=== PATIENT | female | born 1970 | race Caucasian/White ===

== ENCOUNTER 2016-05-26 17:27 | Inpatient (IN) | payer OTHER, MEDICAID ==
[2016-05-26] MEDS ORDERED: INSULIN REGULAR HUMAN 100 UNIT/1 ML 10 ML MDV IVP STA (18:01)
[2016-05-26] MEDS ORDERED: NICOTINE 21 MG PATCH TOP STA (18:01)
[2016-05-26] MEDS ORDERED: SODIUM CHLORIDE 0.9% 1,000 ML IV ONE (18:01)
[2016-05-26] MEDS ORDERED: ALBUTEROL NEB 2.5 MG/3 ML INH STA (18:04)
[2016-05-26] MEDS ORDERED: NICOTINE 21 MG PATCH TOP ONE (18:12)
[2016-05-26] MEDS ORDERED: INSULIN REGULAR HUMAN 100 UNIT/1 ML 10 ML MDV ONE (18:13)
[2016-05-26] MEDS ORDERED: ALBUTEROL NEB 2.5 MG/3 ML INH ONE (18:18)
[2016-05-26] MEDS ORDERED: INSULIN REGULAR HUMAN 100 UNIT in SODIUM CHLORIDE 0.9% 100ML 99 ML IV ONE (18:49)
[2016-05-26] MEDS ORDERED: ELECTROLYTE-A SOLUTION 1,000 ML IV ONE (18:55)
[2016-05-26] MEDS ORDERED: ELECTROLYTE-A SOLUTION 1,000 ML IV SCH (19:00)
[2016-05-26] MEDS ORDERED: oxyCOD/ACETAMIN 5 MG/325 MG TABLET PO ONE (19:22)
[2016-05-26] MEDS ORDERED: HYDROcod/ACETAM 5/325 MG TABLET PO PRN (21:28)
[2016-05-26] MEDS ORDERED: SODIUM CHLORIDE FLUSH 0.9% 10 ML SYRINGE IVP PRN (21:28)
[2016-05-26] MEDS ORDERED: ONDANSETRON ODT 4 MG TABLET TL PRN (21:28)
[2016-05-26] MEDS ORDERED: ALBUTEROL NEB 2.5 MG/3 ML INH PRN (21:28)
[2016-05-26] MEDS ORDERED: ACETAMINOPHEN 325 MG TABLET PO PRN (21:28)
[2016-05-26] MEDS ORDERED: ONDANSETRON 4 MG/2 ML VIAL IVP PRN (21:28)
[2016-05-26] MEDS ORDERED: LORazepam 0.5 MG TABLET PO PRN (21:33)
[2016-05-26] MEDS ORDERED: INSULIN REGULAR HUMAN 100 UNIT in SODIUM CHLORIDE 0.9% 100ML 99 ML IV SCH (22:00)
[2016-05-26] MEDS: SODIUM CHLORIDE 0.9% 1,000 ML IV SCH (22:22)
[2016-05-26] MEDS: SODIUM CHLORIDE FLUSH 0.9% 10 ML SYRINGE IVP SCH (23:14)
[2016-05-26] MEDS: traZODone 50 MG TABLET PO SCH (23:20)
[2016-05-27] MEDS ORDERED: INSULIN GLARGINE 300 UNIT/3 ML PEN SUBQ ONE (00:07)
[2016-05-27] MEDS ORDERED: DEXTROSE 5% 1,000 ML IV PRN ×2 (00:22→06:44)
[2016-05-27] MEDS ORDERED: DEXTROSE 50% ABBOJECT 25 GM/50 ML SYRINGE IVP PRN ×2 (00:22→06:44)
[2016-05-27] MEDS ORDERED: DEXTROSE GEL 37.5 GM TUBE PO PRN ×2 (00:22→06:44)
[2016-05-27] MEDS ORDERED: GLUCAGON 1 MG/ML VIAL SUBQ PRN ×2 (00:22→06:44)
[2016-05-27] MEDS: POTASSIUM CHLORIDE 20 MEQ TABLET PO SCH ×2 (02:34→06:34)
[2016-05-27] MEDS: SODIUM CHLORIDE 0.9% 1,000 ML IV SCH ×2 (02:35→06:24)
[2016-05-27] MEDS: MAGNESIUM SULFATE 2 GRAM 50 ML IV SCH ×2 (02:41→03:45)
[2016-05-27] MEDS: LEVOTHYROXINE 75 MCG TABLET PO SCH (06:33)
[2016-05-27] MEDS: SODIUM CHLORIDE FLUSH 0.9% 10 ML SYRINGE IVP SCH ×2 (07:37→16:53)
[2016-05-27] MEDS ORDERED: INSULIN GLARGINE 300 UNIT/3 ML PEN SUBQ SCH ×2 (08:00→21:00)
[2016-05-27] MEDS ORDERED: CALCIUM GLUCONATE 2,000 MG in SODIUM CHLORIDE 0.9% 100ML 100 ML IV ONE (08:00)
[2016-05-27] MEDS ORDERED: INSULIN ASPART 300 UNIT/3 ML PEN SUBQ SCH (08:00)
[2016-05-27] MEDS: INSULIN ASPART 300 UNIT/3 ML PEN SUBQ SCH ×4 (08:13→21:32)
[2016-05-27] MEDS: NEUTRA-PHOS 250 MG TABLET PO SCH ×2 (08:15→10:50)
[2016-05-27] MEDS ORDERED: HYDROXYZINE HCL PO SCH (09:00)
[2016-05-27] MEDS: HALOPERIDOL 1 MG TABLET PO SCH ×2 (10:51→21:18)
[2016-05-27] MEDS: metFORMIN 500 MG TABLET PO SCH (16:54)
[2016-05-27] MEDS ORDERED: metFORMIN 850 MG TABLET PO SCH (17:00)
[2016-05-27] MEDS: traZODone 50 MG TABLET PO SCH (21:20)
[2016-05-28] MEDS: SODIUM CHLORIDE FLUSH 0.9% 10 ML SYRINGE IVP SCH ×2 (04:49→06:40)
[2016-05-28] MEDS: LEVOTHYROXINE 75 MCG TABLET PO SCH (06:51)
[2016-05-28] MEDS ORDERED: glipiZIDE 5 MG TABLET PO SCH (07:30)
[2016-05-28] MEDS: metFORMIN 500 MG TABLET PO SCH ×2 (08:45→11:50)
[2016-05-28] MEDS: INSULIN ASPART 300 UNIT/3 ML PEN SUBQ SCH ×2 (08:48→11:50)
[2016-05-28] MEDS: HALOPERIDOL 1 MG TABLET PO SCH (09:07)
[2016-05-28] MEDS ORDERED: MAGNESIUM OXIDE 400 MG TABLET PO SCH (11:00)
[2016-05-28] MEDS: NEUTRA-PHOS 250 MG TABLET PO SCH ×2 (11:20→13:41)
[2016-05-28] MEDS ORDERED: MAGNESIUM SULFATE 2 GRAM 50 ML IV ONE (11:30)
== END 2016-05-28 14:20 | disposition home or self-care (01) | DRG 638 ==
DX: E11.01 Type 2 diabetes mellitus with hyperosmolarity with coma (principal); M62.82 Rhabdomyolysis; E87.1 Hypo-osmolality and hyponatremia; T42.4X5A Adverse effect of benzodiazepines, initial encounter; Y92.003 Bedroom of unspecified non-institutional (private) residence as the place of occurrence of the external cause; E87.6 Hypokalemia; E83.39 Other disorders of phosphorus metabolism; J44.9 Chronic obstructive pulmonary disease, unspecified; F20.9 Schizophrenia, unspecified; E86.0 Dehydration; E03.9 Hypothyroidism, unspecified; K21.9 Gastro-esophageal reflux disease without esophagitis; F17.210 Nicotine dependence, cigarettes, uncomplicated; Z60.8 Other problems related to social environment; Z91.11 Patient's noncompliance with dietary regimen; Z79.84 Long term (current) use of oral hypoglycemic drugs; Z71.3 Dietary counseling and surveillance; Z71.6 Tobacco abuse counseling

== ENCOUNTER 2016-07-22 18:28 | Emergency (ER) | payer OTHER, MEDICAID ==
[2016-07-22 19:26] LABS: BASOPHILS # (AUTO) 0.1 10^3/uL (0.0-0.1); BASOPHILS % (AUTO) 0.9 %; EOSINOPHILS # (AUTO) 0.2 10^3/uL (0.0-0.7); EOSINOPHILS % (AUTO) 1.5 %; HCT - HEMATOCRIT 39.8 % (37.0-47.0); LYMPHOCYTES % (AUTO) 39.5 %; MEAN CORPUSCULAR HEMOGLOBIN 32.4 pg (27.0-31.0); MEAN CORPUSCULAR HGB CONC 35.2 g/dL (32.0-36.0); MEAN CORPUSCULAR VOLUME 92.2 fL (81.0-99.0); MONOCYTES # (AUTO) 0.6 10^3/uL (0.0-1.0); MONOCYTES % (AUTO) 5.5 %; NEUTROPHILS # (AUTO) 5.4 10^3/uL (1.5-6.6); NEUTROPHILS % (AUTO) 52.6 %; RED BLOOD COUNT 4.31 10^6/uL (4.20-5.40); RED CELL DISTRIBUTION WIDTH 13.1 % (12.0-15.0); UNCORRECTED WHITE BLOOD COUNT 10.2 x10^3/uL; WHITE BLOOD COUNT 10.2 x10^3/uL (4.8-10.8)
[2016-07-22 19:39] LABS: ALBUMIN/GLOBULIN RATIO 1.3 (1.0-2.2); BILIRUBIN,TOTAL 0.4 mg/dL (0.2-1.0); CALCIUM 9.1 mg/dL (8.5-10.3); CREATININE 0.7 mg/dL (0.4-1.0); POTASSIUM 3.7 mmol/L (3.5-5.0); TOTAL PROTEIN 7.2 g/dL (6.7-8.2)
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
[2016-07-22 20:28] VITALS: BP 101/60
== END 2016-07-22 20:33 | disposition home or self-care (01) ==
LOC: ED 18:28
DX: E11.649 Type 2 diabetes mellitus with hypoglycemia without coma (principal); Z79.84 Long term (current) use of oral hypoglycemic drugs; R20.0 Anesthesia of skin; E03.9 Hypothyroidism, unspecified; M19.90 Unspecified osteoarthritis, unspecified site; F17.200 Nicotine dependence, unspecified, uncomplicated
CPT/HCPCS: 36415; 80053; 83690; 85025; 99283

== ENCOUNTER 2016-10-20 13:24 | Emergency (ER) | payer OTHER, MEDICAID ==
[2016-10-20] MEDS ORDERED: ONDANSETRON ODT 4 MG TABLET ONE (13:43)
[2016-10-20 15:01] LABS: CALCIUM 9.5 mg/dL (8.5-10.3); CREATININE 0.8 mg/dL (0.4-1.0); POTASSIUM 3.8 mmol/L (3.5-5.0)
[2016-10-20] MEDS ORDERED: ONDANSETRON 4 MG/2 ML VIAL IVP STA (16:15)
[2016-10-20] MEDS ORDERED: HYDROmorphone 1 MG/ML SYRINGE IVP STA (16:15)
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
[2016-10-20 16:34] LABS: BASOPHILS % (AUTO) 0.2 %; HGB - HEMOGLOBIN 15.8 g/dL (12.0-16.0); LYMPHOCYTES # (AUTO) 2.3 10^3/uL (1.5-3.5); LYMPHOCYTES % (AUTO) 15.3 %; MEAN CORPUSCULAR HEMOGLOBIN 31.8 pg (27.0-31.0); MEAN CORPUSCULAR HGB CONC 35.2 g/dL (32.0-36.0); MEAN CORPUSCULAR VOLUME 90.5 fL (81.0-99.0); MEAN PLATELET VOLUME 8.4 fL (7.9-10.8); MONOCYTES # (AUTO) 0.7 10^3/uL (0.0-1.0); MONOCYTES % (AUTO) 4.7 %; NEUTROPHILS # (AUTO) 11.8 10^3/uL (1.5-6.6); NEUTROPHILS % (AUTO) 79.8 %; RED BLOOD COUNT 4.97 10^6/uL (4.20-5.40); RED CELL DISTRIBUTION WIDTH 12.8 % (12.0-15.0); UNCORRECTED WHITE BLOOD COUNT 14.8 x10^3/uL; WHITE BLOOD COUNT 14.8 x10^3/uL (4.8-10.8)
[2016-10-20 16:52] LABS: BILIRUBIN,TOTAL 0.8 mg/dL (0.2-1.0); TOTAL PROTEIN 7.5 g/dL (6.7-8.2)
[2016-10-20] MEDS ORDERED: SODIUM CHLORIDE FLUSH 0.9% 10 ML SYRINGE IVP ONE (16:56)
[2016-10-20] MEDS ORDERED: HYDROmorphone 1 MG/ML SYRINGE ONE (16:56)
[2016-10-20] MEDS ORDERED: ONDANSETRON 4 MG/2 ML VIAL ONE (16:56)
[2016-10-20 18:21] LABS: BILIRUBIN,URINE NEGATIVE (NEGATIVE); UA CHARGE (STRIP ONLY) YES; UR CULTURE IF IND NOT INDICATED
[2016-10-20] MEDS ORDERED: IOPAMIDOL-300 100 ML VIAL IVP ONE (18:23)
--- NOTE | 2016-10-20 18:31 | CT Report ---
EXAM: CT ABDOMEN AND PELVIS EXAM DATE: 10/20/2016 06:10 PM. CLINICAL HISTORY: IV only, diffuse abd pain. COMPARISONS: None. TECHNIQUE: Routine helical CT imaging was performed through the abdomen and pelvis. IV contrast: 100 cc Isovue-300 IV. Enteric contrast: No. Reconstructions: Coronal and sagittal. In accordance with CT protocol optimization, one or more of the following dose reduction techniques w ere utilized for this exam: automated exposure control, adjustment of mA and/or KV based on patient s ize, or use of iterative reconstructive technique. FINDINGS: Lung Bases: Unremarkable. Liver: Normal. No masses. Gallbladder/Bile Ducts: There is increased density within the gallbladder. Spleen: Normal. Pancreas: Normal. Adrenal Glands: Normal. Kidneys: Normal. No masses or hydronephrosis. Peritoneal Cavity/Bowel: There is a very small volume of intraperitoneal free fluid in the lower and upper abdomen. The pelvic free fluid is mildly hyperdense at 21 Hounsfield units. The bowel is normal in caliber without transition zone. Pelvic Organs: Uterus is anteverted. Urinary bladder is empty. Ovaries are not well seen. Vasculature: No aneurysms or other significant abnormality. Bones: No significant abnormality. Other: None. IMPRESSION: 1. Small volume of mildly hyperdense free fluid in the low pelvis. This may represent proteinaceous i nflammatory fluid or hemorrhagic fluid such as from ruptured ovarian follicle or cyst. No organized a bscess. 2. Sludge or noncalcified stones in the gallbladder. [facility] Referring Provider Line: [phone] SITE ID: [id number]
[2016-10-20 19:04] VITALS: BP 114/83
[2016-10-20 19:19] LABS: HCG UR QUAL NEGATIVE
== END 2016-10-20 19:15 | disposition home or self-care (01) ==
LOC: ED 13:24
DX: K80.50 Calculus of bile duct without cholangitis or cholecystitis without obstruction (principal); R10.84 Generalized abdominal pain; E11.9 Type 2 diabetes mellitus without complications; E03.9 Hypothyroidism, unspecified; F17.200 Nicotine dependence, unspecified, uncomplicated; Z79.84 Long term (current) use of oral hypoglycemic drugs
CPT/HCPCS: 36415; 74177; 80048; 80164; 81003; 81025; 82040; 82247; 83690; 84075; 84155; 84450; 84460; 85025; 96374; 96375; 99284; J1170; Q0162; Q9967; 80053; 81001; 87086

== ENCOUNTER 2016-11-17 01:15 | Outpatient (CLI) | payer OTHER, MEDICAID | END 2016-11-17 01:16 | disposition critical access hospital (66) | LOC: EMS 01:15 | PROVIDERS: ATTEND Surgery | DX: M79.89 Other specified soft tissue disorders (principal) | CPT/HCPCS: A0425; A0429 ==

== ENCOUNTER 2016-11-17 01:31 | Emergency (ER) | payer OTHER, MEDICAID ==
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
[2016-11-17 02:37] VITALS: BP 105/67
== END 2016-11-17 02:55 | disposition home or self-care (01) ==
LOC: ED 01:31
DX: M79.621 Pain in right upper arm (principal); E11.9 Type 2 diabetes mellitus without complications; F17.200 Nicotine dependence, unspecified, uncomplicated
CPT/HCPCS: 99282; 99283

== ENCOUNTER 2016-11-25 13:54 | Emergency (ER) | payer OTHER, MEDICAID ==
[2016-11-25 14:39] LABS: BASOPHILS # (AUTO) 0.1 10^3/uL (0.0-0.1); BASOPHILS % (AUTO) 0.6 %; EOSINOPHILS % (AUTO) 0.3 %; HCT - HEMATOCRIT 42.1 % (37.0-47.0); HGB - HEMOGLOBIN 15.3 g/dL (12.0-16.0); LYMPHOCYTES % (AUTO) 39.2 %; MEAN CORPUSCULAR HEMOGLOBIN 33.9 pg (27.0-31.0); MEAN CORPUSCULAR HGB CONC 36.3 g/dL (32.0-36.0); MEAN CORPUSCULAR VOLUME 93.3 fL (81.0-99.0); MEAN PLATELET VOLUME 7.2 fL (7.9-10.8); MONOCYTES # (AUTO) 0.6 10^3/uL (0.0-1.0); MONOCYTES % (AUTO) 5.5 %; NEUTROPHILS # (AUTO) 5.6 10^3/uL (1.5-6.6); NEUTROPHILS % (AUTO) 54.4 %; RED BLOOD COUNT 4.51 10^6/uL (4.20-5.40); RED CELL DISTRIBUTION WIDTH 14.4 % (12.0-15.0); UNCORRECTED WHITE BLOOD COUNT 10.3 x10^3/uL; WHITE BLOOD COUNT 10.3 x10^3/uL (4.8-10.8)
[2016-11-25 14:48] LABS: ACETAMINOPHEN < 10 ug/mL (10-30); ALBUMIN/GLOBULIN RATIO 1.3 (1.0-2.2); BILIRUBIN,TOTAL 0.8 mg/dL (0.2-1.0); BUN - BLOOD UREA NITROGEN 5 mg/dL (6-20); CALCIUM 9.8 mg/dL (8.5-10.3); CARBON DIOXIDE - CO2 25 mmol/L (21-32); CHLORIDE 99 mmol/L (101-111); CREATININE 0.7 mg/dL (0.4-1.0); GFR - MDRD 90 (>89); GLUCOSE 113 mg/dL (70-100); LIPASE 25 U/L (22-51); POTASSIUM 3.2 mmol/L (3.5-5.0); SALICYLATE < 6.0 mg/dL; SODIUM 137 mmol/L (135-145); TOTAL PROTEIN 7.8 g/dL (6.7-8.2)
[2016-11-25 15:47] LABS: BILIRUBIN,URINE NEGATIVE (NEGATIVE)
[2016-11-25 15:48] LABS: UA CHARGE (STRIP ONLY) YES; UR CULTURE IF IND NOT INDICATED
[2016-11-25] MEDS ORDERED: NICOTINE 14 MG PATCH TOP STA (18:32)
[2016-11-25] MEDS ORDERED: NICOTINE 14 MG PATCH TOP ONE ×2 (18:50→18:59)
--- NOTE | 2016-11-25 19:49 | ED Physician Documentation ---
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 on max dose vraylor X 1 m brought in by caregiver for worsening psychosis despite med changes auditory hallucinations saying things like "we will set a spider on you if you are not good" denies pain denies fever cough NVD Review of Systems Constitutional: denies: Fever, Chills Throat: denies: Sore throat Cardiac: denies: Chest pain / pressure Respiratory: denies: Dyspnea GI: denies: Abdominal Pain, Nausea, Vomiting Psychiatric: reports: Hallucinations PD PAST MEDICAL HISTORY - Past Medical History Cardiovascular: None Respiratory: Asthma Neuro: None Endocrine/Autoimmune: Type 2 diabetes, HyPOthyroidism GI: Hemorrhoids : Incontinence HEENT: None Psych: Depression, Bipolar disorder, Schizophrenia Musculoskeletal: Osteoarthritis Derm: Other - Past Surgical History Past Surgical History: No Derm: Skin grafts - Present Medications Home Medications: Ambulatory Orders Medication Instructions Recorded Confirmed Haloperidol 10 mg PO BID 10/09/14 11/17/16 Levothyroxine Sodium 150 mcg PO QDAC 05/26/16 11/17/16 Norethindrone-Ethinyl Estrad 1 each PO DAILY 05/26/16 11/17/16 [Cyclafem 1-35-28 Tablet] Omeprazole 20 mg PO DAILY 05/26/16 11/17/16 traZODone [Desyrel] 100 mg PO HS 05/26/16 11/17/16 Divalproex Sodium [Divalproex 1,000 mg PO QPM 05/27/16 11/17/16 Sodium ER] Lorazepam [Ativan] 1 mg PO Q12H PRN 05/27/16 11/17/16 hydrOXYzine PAMOATE [Vistaril] 25 mg PO BID 05/27/16 11/17/16 Cariprazine HCl [Vraylar] 3 mg PO DAILY 07/22/16 11/17/16 Metformin HCl 1,000 mg PO BID 07/22/16 11/17/16 glipiZIDE [Glucotrol] 10 mg PO 0730 07/22/16 11/17/16 - Allergies Allergies/Adverse Reactions: Allergies Allergy/AdvReac Type Severity Reaction Status Date / Time clozapine Allergy Unknown Verified 11/25/16 14:06 - Social History Does the pt smoke?: Yes Smoking Status: Current every day smoker Does the pt drink ETOH?: No Does the pt have substance abuse?: No - Immunizations Immunizations: TDAP >10years/unknown - POLST Patient has POLST: No PD ED PE NORMAL - Vitals Vital signs reviewed: Yes - General General: No: Alert and oriented X 3 (name and place) - HEENT HEENT: PERRL - Neck Neck: Supple, no meningeal sign - Cardiac Cardiac: RRR - Respiratory Respiratory: No respiratory distress, Clear bilaterally - Abdomen Abdomen: Soft, Non tender - Neuro Neuro: No motor deficit. No: Alert and oriented X 3 (X 2 (name and place)) - Psych Psych: Other (floridly psychotic) Results - Vitals Vitals: Vital Signs - 24 hr 11/25/16 13:58 Temperature 37.0 C Heart Rate 101 H Respiratory 20 Rate Blood Pressure 129/89 H O2 Saturation 97 Oxygen O2 Source Room air - Labs Labs: Laboratory Tests 11/25/16 11/25/16 11/25/16 14:08 14:28 14:28 WBC 10.3 RBC 4.51 Hgb 15.3 Hct 42.1 MCV 93.3 MCH 33.9 H MCHC 36.3 H RDW 14.4 Plt Count 306 MPV 7.2 L Neut # 5.6 Lymph # 4.0 H [place] # 0.6 Eos # 0.0 Baso # 0.1 Absolute Nucleated RBC 0.00 Nucleated RBCs 0.0 Sodium 137 Potassium 3.2 L Chloride 99 L Carbon Dioxide 25 Anion Gap 13.0 BUN 5 L Creatinine 0.7 Estimated GFR (MDRD) 90 Glucose 113 H POC Whole Bld Glucose 105 H Calcium 9.8 Total Bilirubin 0.8 AST 45 H ALT 64 H Alkaline Phosphatase 49 Total Protein 7.8 Albumin 4.4 Globulin 3.4 Albumin/Globulin Ratio 1.3 Lipase 25 TSH Serum HCG, Qual Urine Color Urine Clarity Urine pH Ur Specific [place] Urine Protein Urine Glucose (UA) Urine Ketones Urine Occult Blood Urine Nitrite Urine Bilirubin Urine Urobilinogen Ur Leukocyte Esterase Ur Microscopic Review Urine Culture Comments Last Dose Date Last Dose Time Salicylates < 6.0 Urine Opiates Screen Ur Oxycodone Screen Urine Methadone Screen Ur Propoxyphene Screen Acetaminophen < 10 L Ur Barbiturates Screen Valproic Acid Ur Tricyclics Screen Ur Phencyclidine Scrn Ur Amphetamine Screen U Methamphetamines Scrn U Benzodiazepines Scrn Urine Cocaine Screen U Cannabinoids Screen Ethyl Alcohol < 5.0 11/25/16 11/25/16 11/25/16 14:28 14:28 14:28 WBC RBC Hgb Hct MCV MCH MCHC RDW Plt Count MPV Neut # Lymph # [place] # Eos # Baso # Absolute Nucleated RBC Nucleated RBCs Sodium Potassium Chloride Carbon Dioxide Anion Gap BUN Creatinine Estimated GFR (MDRD) Glucose POC Whole Bld Glucose Calcium Total Bilirubin AST ALT Alkaline Phosphatase Total Protein Albumin Globulin Albumin/Globulin Ratio Lipase TSH 28.58 H Serum HCG, Qual NEGATIVE Urine Color Urine Clarity Urine pH Ur Specific [place] Urine Protein Urine Glucose (UA) Urine Ketones Urine Occult Blood Urine Nitrite Urine Bilirubin Urine Urobilinogen Ur Leukocyte Esterase Ur Microscopic Review Urine Culture Comments Last Dose Date UNK Last Dose Time UNK Salicylates Urine Opiates Screen Ur Oxycodone Screen Urine Methadone Screen Ur Propoxyphene Screen Acetaminophen Ur Barbiturates Screen Valproic Acid 21.7 Ur Tricyclics Screen Ur Phencyclidine Scrn Ur Amphetamine Screen U Methamphetamines Scrn U Benzodiazepines Scrn Urine Cocaine Screen U Cannabinoids Screen Ethyl Alcohol 11/25/16 11/25/16 15:30 19:22 WBC RBC Hgb Hct MCV MCH MCHC RDW Plt Count MPV Neut # Lymph # [place] # Eos # Baso # Absolute Nucleated RBC Nucleated RBCs Sodium Potassium Chloride Carbon Dioxide Anion Gap BUN Creatinine Estimated GFR (MDRD) Glucose POC Whole Bld Glucose 175 H Calcium Total Bilirubin AST ALT Alkaline Phosphatase Total Protein Albumin Globulin Albumin/Globulin Ratio Lipase TSH Serum HCG, Qual Urine Color YELLOW Urine Clarity CLEAR Urine pH 6.0 Ur Specific [place] <=1.005 Urine Protein NEGATIVE Urine Glucose (UA) NEGATIVE Urine Ketones NEGATIVE Urine Occult Blood TRACE-INTA Urine Nitrite NEGATIVE Urine Bilirubin NEGATIVE Urine Urobilinogen 0.2 (NORMAL) Ur Leukocyte Esterase NEGATIVE Ur Microscopic Review NOT INDICATED Urine Culture Comments NOT INDICATED Last Dose Date Last Dose Time Salicylates Urine Opiates Screen NEGATIVE Ur Oxycodone Screen NEGATIVE Urine Methadone Screen NEGATIVE Ur Propoxyphene Screen NEGATIVE Acetaminophen Ur Barbiturates Screen NEGATIVE Valproic Acid Ur Tricyclics Screen NEGATIVE Ur Phencyclidine Scrn NEGATIVE Ur Amphetamine Screen NEGATIVE U Methamphetamines Scrn NEGATIVE U Benzodiazepines Scrn POSITIVE H Urine Cocaine Screen NEGATIVE U Cannabinoids Screen NEGATIVE Ethyl Alcohol PD MEDICAL DECISION MAKING - ED course ED course: labs drawn TSH high and noted and needs follow up (pt known hypothyroid on sunthroid already ) but her sx are not c/w hypothyroidism and should not preclude her being medically clear for mental care turned over to night EMP Dr Yan pending [facility] dispo Departure - Departure Disposition: 65 Psych Hosp/Unit DC/Xfer Clinical Impression: Psychosis Qualifiers: Psychosis type: other Qualified Code(s): F28 - Other psychotic disorder not due to a substance or known physiological condition Follow-Up: Arslan Keith MD [Primary Care Provider] - Comments: When you get out of the mental health hospital, please follow up with your PMD about your thyroid
[2016-11-25] MEDS ORDERED: hydrOXYzine PAMOATE 25 MG CAPSULE PO STA (22:19)
[2016-11-25] MEDS ORDERED: metFORMIN 500 MG TABLET PO STA (22:19)
[2016-11-25] MEDS ORDERED: traZODone 50 MG TABLET PO STA (22:19)
[2016-11-25] MEDS ORDERED: DIVALPROEX ER 250 MG TABLET PO STA (22:19)
[2016-11-25] MEDS ORDERED: hydrOXYzine PAMOATE 25 MG CAPSULE ONE (22:31)
[2016-11-25] MEDS ORDERED: metFORMIN 500 MG TABLET ONE (22:31)
[2016-11-25 23:45] VITALS: BP 139/89
[2016-11-26] MEDS ORDERED: HALOPERIDOL 1 MG TABLET PO SCH (09:00)
== END 2016-11-25 23:48 ==
LOC: ED 13:54
DX: F28 Other psychotic disorder not due to a substance or known physiological condition (principal); E11.9 Type 2 diabetes mellitus without complications; E03.9 Hypothyroidism, unspecified; F17.200 Nicotine dependence, unspecified, uncomplicated; Z79.84 Long term (current) use of oral hypoglycemic drugs
CPT/HCPCS: 36415; 80053; 80164; 80306; 80307; 80320; 80329; 81003; 83690; 84443; 84703; 85025; 99283; 99284; A9270; 81001; 87086

== ENCOUNTER 2018-01-02 15:42 | Outpatient (CLI) | payer OTHER, MEDICAID | END 2018-01-02 15:43 | disposition EMS.NT | LOC: EMS 15:42 | PROVIDERS: ATTEND Surgery | DX: Z03.89 Encounter for observation for other suspected diseases and conditions ruled out (principal) ==

== ENCOUNTER 2018-10-21 12:59 | Outpatient (CLI) | payer OTHER, MEDICAID ==
[2018-10-21] MEDS ORDERED: SINCALIDE 5 MCG VIAL ONE (14:38)
[2018-10-21] MEDS ORDERED: MORPHINE 2 MG/ML CARPUJECT IVP SCH (16:00)
--- NOTE | 2018-10-21 16:28 | Nuclear Medicine Report ---
Reason: GALLSTONE QUESTIONABLE PAIN Procedure Date: 10/21/2018 Accession Number: [id number] / [id number] Procedure: NM - Hepatobiliary HIDA w/ Rx CPT Code: FULL RESULT: EXAM: HEPATOBILIARY SCAN EXAM DATE: 10/21/2018 04:09 PM. CLINICAL HISTORY: GALLSTONE QUESTIONABLE PAIN. The patient is reportedly not acutely symptomatic. COMPARISON: Report from an ultrasound exam done at an outside institution dated 09/23/2018 was reviewed. TECHNIQUE: Following the intravenous administration of 5.3 mCi of Tc99m Mebrofenin, a hepatobiliary scan was done centered on the right upper quadrant region in multiple sequential images and projections. Morphine sulfate given: No. Four-hour delayed images performed: No. FINDINGS: Normal extraction of tracer from the blood pool indicating normal hepatocellular function. The liver size and shape is grossly within normal limits. There is activity visualized within the bile ducts and small bowel. The gallbladder does not fill during the first hour. Positive for enterogastric bile reflux. IMPRESSION: 1. The gallbladder does not fill during the first hour. Morphine reportedly could not be administered. The patient is reportedly not acutely symptomatic. With the reported gallstone on the ultrasound exam, this pattern is consistent with chronic cholecystitis. 2. Patent common bile duct. 3. Positive for enterogastric bile reflux. RADIA
== END 2018-10-21 13:00 | disposition home or self-care (01) ==
LOC: DI 12:59
PROVIDERS: ATTEND Surgery
DX: K80.20 Calculus of gallbladder without cholecystitis without obstruction (principal)
CPT/HCPCS: 78227

== ENCOUNTER 2018-10-24 02:24 | Outpatient (CLI) | payer OTHER, MEDICAID | END 2018-10-24 02:25 | disposition critical access hospital (66) | LOC: EMS 02:24 | PROVIDERS: ATTEND Surgery | DX: R10.9 Unspecified abdominal pain (principal); R10.2 Pelvic and perineal pain | CPT/HCPCS: A0425; A0429 ==

== ENCOUNTER 2018-10-24 02:43 | Emergency (ER) | payer OTHER, MEDICAID ==
--- NOTE | 2018-10-24 02:50 | ED Physician Documentation ---
PD HPI ABD PAIN - Stated complaint Stated Complaint: FEM - Chief complaint Chief Complaint: Abd Pain - History obtained from History obtained from: Patient, EMS - History of Present Illness Timing - onset: Unknown Pain level now: 0 Associated symptoms: Nausea. No: Vomiting Similar symptoms before: Has not had sx before - Additional information Additional information: BIBA. after d/w medics, chief complaint and reason for ED visit remains unclear. per medic report, patient is concerned about producing clear white substance when she expectorates or vomits (not clear as to source). furthermore, timeframe of symptoms is unclear, and patient also told medics about abdominal, pelvic, and vaginal discomfort without clear time of onset/chronicity. on my evaluation, patient only c/o mild and intermittent cough productive of clear mucous, unclear as to acuity/chronicity. she repeatedly requests to be discharged home during my HPI/ROS/PE and denies other c/o including c/o she reportedly described to EMS Review of Systems Constitutional: reports: Reviewed and negative Cardiac: reports: Reviewed and negative Respiratory: reports: Cough. denies: Dyspnea GI: reports: Reviewed and negative : reports: Reviewed and negative PD PAST MEDICAL HISTORY - Past Medical History Cardiovascular: None Respiratory: Asthma Endocrine/Autoimmune: Type 2 diabetes, HyPOthyroidism GI: Hemorrhoids : Incontinence HEENT: None Psych: Depression, Bipolar disorder, Schizophrenia Musculoskeletal: Osteoarthritis Derm: Other - Past Surgical History Past Surgical History: No Derm: Skin grafts - Present Medications Home Medications: Ambulatory Orders Medication Instructions Recorded Confirmed Levothyroxine Sodium 137 mcg PO QDAC 05/26/16 10/24/18 Norethindrone-Ethinyl Estrad 1 each PO DAILY 05/26/16 10/24/18 [Cyclafem 1-35-28 Tablet] Omeprazole 20 mg PO DAILY 05/26/16 10/24/18 traZODone [Desyrel] 200 mg PO HS 05/26/16 10/24/18 hydrOXYzine PAMOATE [Vistaril] 25 mg PO TID 05/27/16 10/24/18 Metformin HCl 1,000 mg PO BID 07/22/16 10/24/18 glipiZIDE [Glucotrol] 5 mg PO 0730 07/22/16 10/24/18 Albuterol Sulfate [Proair 1 puffs INH Q4H PRN 01/12/17 10/24/18 Respiclick] Brimonidine 0.15% Ophth Drops 1 drops EACHEYE BID 01/12/17 10/24/18 [Alphagan P 0.15% Ophth Drops] Pnv with Ca,No.72/Iron,Carb/FA 1 tab PO DAILY 01/12/17 10/24/18 [ Plus Iron Tablet] Timolol 0.25% Ophth Drops 1 drops EACHEYE BID 01/12/17 10/24/18 [Timoptic 0.25% Ophth Drops] Docusate Calcium 240 mg PO BID 10/24/18 10/24/18 Ergocalciferol [Vitamin D2] 1 cap PO 10/24/18 - Allergies Allergies/Adverse Reactions: Allergies Allergy/AdvReac Type Severity Reaction Status Date / Time clozapine Allergy Unknown Verified 10/24/18 02:55 - Social History Does the pt smoke?: Yes Smoking Status: Current every day smoker Does the pt drink ETOH?: No Does the pt have substance abuse?: No - Immunizations Immunizations: TDAP >10years/unknown - POLST Patient has POLST: No PD ED PE NORMAL - Vitals Vital signs reviewed: Yes - General General: Alert and oriented X 3, No acute distress, Well developed/nourished - HEENT HEENT: Moist mucous membranes - Cardiac Cardiac: RRR, No murmur - Respiratory Respiratory: No respiratory distress, Clear bilaterally - Abdomen Abdomen: Normal bowel sounds, Soft, Non tender, Non distended - Derm Derm: Normal color, Warm and dry Results - Vitals Vitals: Vital Signs - 24 hr 10/24/18 10/24/18 02:46 03:29 Temperature 37.0 C 36.8 C Heart Rate 106 H 99 Respiratory 18 18 Rate Blood Pressure 120/85 H 126/73 O2 Saturation 97 99 Oxygen O2 Source Room air - Labs Labs: Laboratory Tests 10/24/18 10/24/18 03:05 03:05 Urine Color YELLOW Urine Clarity CLEAR Urine pH 5.5 Ur Specific [place] <=1.005 <1.005 Urine Protein NEGATIVE Urine Glucose (UA) >=1000 H Urine Ketones NEGATIVE Urine Occult Blood NEGATIVE Urine Nitrite NEGATIVE Urine Bilirubin NEGATIVE Urine Urobilinogen 0.2 (NORMAL) Ur Leukocyte Esterase NEGATIVE Ur Microscopic Review NOT INDICATED Urine HCG, Qual NEGATIVE PD MEDICAL DECISION MAKING - ED course Complexity details: considered differential, d/w patient ED course: patient insists she has no other symptoms aside from occasional cough for weeks that is intermittently productive of clear, white phlegm. she repeatedly requests d/c during H+P Departure - Departure Disposition: 01 Home, Self Care Clinical Impression: Cough Condition: Good Instructions: ED URI Viral Discharge Date/Time: 10/24/18 03:32
[2018-10-24 03:13] LABS: BILIRUBIN,URINE NEGATIVE (NEGATIVE); GLUCOSE, URINE (UA) >=1000 mg/dL (NEGATIVE); KETONES,URINE (UA) NEGATIVE (NEGATIVE); LEUKOCYTE ESTERASE, URINE NEGATIVE (NEGATIVE); NITRITE,URINE NEGATIVE (NEGATIVE); OCCULT BLOOD,URINE NEGATIVE (NEGATIVE); PH,URINE 5.5 PH (5.0-7.5); PROTEIN,URINE NEGATIVE (NEGATIVE); UROBILINOGEN,URINE 0.2 (NORMAL) E.U./dL (NORMAL)
[2018-10-24 03:14] LABS: CLARITY,URINE CLEAR (CLEAR)
[2018-10-24 03:16] LABS: HCG UR QUAL NEGATIVE
[2018-10-24 03:30] VITALS: BP 126/73
== END 2018-10-24 03:32 | disposition home or self-care (01) ==
LOC: EDUNIT# → ED 02:43
DX: R05 Cough (principal); E11.9 Type 2 diabetes mellitus without complications; Z79.84 Long term (current) use of oral hypoglycemic drugs; F17.200 Nicotine dependence, unspecified, uncomplicated
CPT/HCPCS: 81001; 81003; 81025; 99281; 99283

== ENCOUNTER 2018-12-02 14:06 | Outpatient (CLI) | payer OTHER, MEDICAID ==
[2018-12-02 14:31] LABS: BASOPHILS % (AUTO) 0.4 %; EOSINOPHILS # (AUTO) 0.2 10^3/uL (0.0-0.7); LYMPHOCYTES # (AUTO) 3.7 10^3/uL (1.5-3.5); LYMPHOCYTES % (AUTO) 36.2 %; MEAN CORPUSCULAR HEMOGLOBIN 28.1 pg (27.0-31.0); MEAN CORPUSCULAR HGB CONC 33.6 g/dL (32.0-36.0); MEAN CORPUSCULAR VOLUME 83.7 fL (81.0-99.0); MEAN PLATELET VOLUME 9.7 fL (7.9-10.8); MONOCYTES # (AUTO) 0.5 10^3/uL (0.0-1.0); MONOCYTES % (AUTO) 4.7 %; NEUTROPHILS # (AUTO) 5.7 10^3/uL (1.5-6.6); NEUTROPHILS % (AUTO) 56.1 %; PLT - PLATELET COUNT 269 10^3/uL (130-450); RED BLOOD COUNT 4.98 10^6/uL (4.20-5.40); RED CELL DISTRIBUTION WIDTH 13.2 % (12.0-15.0); WHITE BLOOD COUNT 10.2 x10^3/uL (4.8-10.8)
[2018-12-02 14:43] LABS: ALBUMIN 3.8 g/dL (3.2-5.5); ALBUMIN/GLOBULIN RATIO 1.1 (1.0-2.2); BILIRUBIN,TOTAL 0.5 mg/dL (0.2-1.0); CALCIUM 9.5 mg/dL (8.5-10.3); CREATININE 0.7 mg/dL (0.4-1.0); TOTAL PROTEIN 7.3 g/dL (6.7-8.2)
== END 2018-12-02 14:07 | disposition home or self-care (01) ==
LOC: LAB 14:06
PROVIDERS: ATTEND Registered Nurse
DX: Z01.818 Encounter for other preprocedural examination (principal); E11.9 Type 2 diabetes mellitus without complications; Z79.899 Other long term (current) drug therapy
CPT/HCPCS: 36415; 80053; 85025; 93005

== ENCOUNTER 2018-12-09 05:46 | Day surgery (SDC) | payer OTHER, MEDICAID ==
[2018-12-09] MEDS ORDERED: CEFAZOLIN SODIUM IN 0.9 % NACL 2 GM/100 ML BAG IV ONE (06:32)
[2018-12-09] MEDS ORDERED: BUPIVACAINE 0.5% PF 10 ML VIAL ONE ×2 (07:13→08:47)
[2018-12-09] MEDS ORDERED: LACTATED RINGERS 1,000 ML IV ONE ×2 (07:20→09:15)
[2018-12-09] MEDS ORDERED: BUPIVACAINE 0.5% PF 10 ML VIAL SUBQ ONE ×2 (07:27→08:46)
--- NOTE | 2018-12-09 07:28 | ANESTHESIA ---
Pre-Anesthesia VS, & Labs - Diagnosis Chronic cholecystitis - Procedure Laparoscopic cholecystectomy Vital Signs: Temp Pulse Resp BP Pulse Ox 36.6 C 95 16 132/89 H 97 12/09/18 06:45 12/09/18 06:45 12/09/18 06:45 12/09/18 06:45 12/09/18 06:45 Height 5 ft 1 in Weight (kg) 65 kg Body Mass Index 27.3 - NPO >8 hours - Is Patient ?: Waiver signed - Lab Results Lab results reviewed: Yes Home Medications and Allergies Levothyroxine Sodium 137 mcg PO QDAC 05/26/16 Norethindrone-Ethinyl Estrad [Cyclafem 1-35-28 Tablet] 1 each PO DAILY 05/26/16 Omeprazole 20 mg PO DAILY 05/26/16 traZODone [Desyrel] 200 mg PO HS 05/26/16 hydrOXYzine PAMOATE [Vistaril] 25 mg PO TID 05/27/16 Metformin HCl 1,000 mg PO BID 07/22/16 glipiZIDE [Glucotrol] 5 mg PO 0730 07/22/16 Albuterol Sulfate [Proair Respiclick] 1 puffs INH Q4H PRN 01/12/17 Brimonidine 0.15% Ophth Drops [Alphagan P 0.15% Ophth Drops] 1 drops EACHEYE BID 01/12/17 Pnv with Ca,No.72/Iron,Carb/FA [ Plus Iron Tablet] 1 tab PO DAILY 01/12/17 Timolol 0.25% Ophth Drops [Timoptic 0.25% Ophth Drops] 1 drops EACHEYE BID 01/12/17 Docusate Calcium 240 mg PO BID 10/24/18 Ergocalciferol [Vitamin D2] 1 cap PO 10/24/18 Allergies/Adverse Reactions: Allergies Allergy/AdvReac Type Severity Reaction Status Date / Time clozapine Allergy Unknown Verified 10/24/18 02:55 Anes History & Medical History - Anesthetic History Anesthesia Complications: reports: No previous complications Family history of Anesthesia Complications: Denies Family history of Malignant Hyperthermia: Denies - Medical History Cardiovascular: reports: None Pulmonary: reports: Asthma, Other Gastrointestinal: reports: GERD, Hemorrhoids, Cholelithiasis Urinary: reports: None Musculoskeletal: reports: Osteoarthritis Endocrine/Autoimmune: reports: Type 2 diabetes, HyPOthyroidism Blood Disorders: reports: None Skin: reports: Other Smoking Status: Current every day smoker Psychosocial: reports: Depression, Anxiety, Other (schizophrenia) - Surgical History Eyes Ears Nose Throat (EENT): Other Dermatologic: Skin grafts Exam General: Alert, Oriented x3, Cooperative Dental: Poor dentition (none loose) Mouth Openin Fingerbreadth Neck Mobility: Reduced (skin graft@ chesy slightly preventing head tilt back) Mallampati classification: II Thyromental Distance: 4-6 cm Respiratory: Lungs clear, Normal breath sounds, No respiratory distress Cardiovascular: Regular rate Neurological: Normal speech Mental/Cognitive Status: Alert/Oriented X3, Normal for patient Cognitive Status: Within normal limits Plan Anesthesia Type: General Consent for Procedure(s) Verified and Reviewed: Yes Code Status: Attempt Resuscitation ASA classification: 2-Mild systemic disease Is this case an emergency?: No
[2018-12-09] MEDS ORDERED: INSULIN REGULAR HUMAN 100 UNIT/1 ML 10 ML MDV ONE (07:45)
[2018-12-09] MEDS ORDERED: ONDANSETRON 4 MG/2 ML VIAL IVP PRN (09:02)
[2018-12-09] MEDS ORDERED: HYDROmorphone 0.5 MG/0.5 ML SYRINGE IVP PRN (09:02)
[2018-12-09] MEDS ORDERED: HYDROcod/ACETAM 5/325 MG TABLET PO PRN (09:02)
--- NOTE | 2018-12-09 09:12 | OPERATIVE REPORT ---
Operative Report - General Procedure Date: 12/09/18 Planned Procedure: Laparoscopic cholecystectomy, possible open cholecystectomy, possible common bile duct expiration, possible intraoperative cholangiogram Pre-Op Diagnosis: Chronic cholecystitis Procedure Performed: Laparoscopic cholecystectomy Post Op Diagnosis: Chronic cholecystitis - Procedure Note Primary Surgeon: Jake Herrera MD Anesthesia Provider: Diana Reyes CRNA Anesthesia Technique: General ET tube IV Fluids (mL): 500 Estimated Blood Loss (mL): 5 Drain/Tube Type: Other (None) Complications: None - Other Other Information/Narrative: OPERATIVE DESCRIPTION/REPORT: After verbal and written informed consent was obtained detailing the risks of infection, bleeding requiring transfusion with its risks, nerve injury, and , as well as the possibility of a colostomy, and after I met with the patient confirming the surgery, the patient was brought to the operative suite and placed supine on the operating table. Great care was taken to avoid pressure points to prevent pressure necrosis or nerve injury. Monitoring devices were applied along with TEDs and pneumatic compressive stockings (to prevent DVT). The patient received preoperative antibiotics for surgical prophylaxis. Diana Reyes CRNA sedated and anesthetized the patient for the entire procedure. The patient was prepped and draped in the usual sterile manner. A "time in" then confirmed that the patient was identified with 3 identifiers (name, date and medical record number), the history and physical was in the chart, the signed consent confirming the procedure was in the chart, the patient was in the correct position, the aforementioned prophylactic measures were in place or given, we had the correct personnel and equipment to complete the procedure and that anesthesia, surgery and nursing were given an opportunity to express any concerns. With the agreement of everyone in the room, we proceeded with the operation. The initial incision was at the umbilicus and dissection to the linea alba was completed using blunt dissection. The linea alba was grasped with a Adria and incised. In a similar manner the peritoneum was grasped and incised using Metzenbaum scissors. In this location, a 12 mm blunt tipped, balloon tipped port was placed and the balloon was inflated to keep the port in position. The abdominal cavity was insufflated with carbon dioxide to steady-state pressure of 15 mmHg. Three additional 5 mm ports were placed in standard location for laparoscopic cholecystectomy (subxiphoid and 2 right subcostal) under direct vision of the 30 degree laparoscope and without incident. The patient was then placed in reverse Trendelenburg position and was rotated slightly to their left. The gallbladder was markedly scarred small and intrahepatic consistent with the preoperative radiographic findings. As such standard dissection could not be applied. The dissection was done in a "top down" manner. The gallbladder was dissected free from the liver using Bovie electrocautery until the cystic duct and artery could be clearly identified. Once the cystic duct and artery were clearly identified there were doubly clipped proximally and distally taking care to avoid occluding the juncture with a common bile duct. Please note a critical view was still obtained. Both the cystic duct and the cystic artery were transected using laparoscopic jolene. With the 30 degree 5 mm scope in the subxiphoid position, the gallbladder was placed in an EndoCatch bag to be extracted through the 12 mm port site. I irrigated the right upper quadrant with a liter of warm sterile saline, and the area was aspirated dry. I inspected the gallbladder fossa and there was no bleeding or bile leak. Clips on the cystic duct and cystic artery appeared to be secure. I briefly visually explored the abdomen. There was no other evidence of overt pathology. I injected the port sites at the peritoneal, fascial, and skin levels under direct vision with 0.5% Marcaine. All ports and the EndoCatch containing the gallbladder were removed. Following gallbladder removal, the remaining carbon dioxide was expelled from the abdomen. The fascia at the umbilicus was reapproximated using a [id number] 0 Vicryl suture. The skin at each port site was approximated using a subcuticular 4-0 Monocryl. The surgical count of instruments, needles and sponges was reported as correct twice. Dermabond was applied. The patient was then awakened from anesthesia, extubated, and having tolerated the procedure well, was transported to the recovery room. No complications were encountered. A "time out" confirmed the operation performed, the fluids given, the estimated blood loss and anesthesia, surgery and nursing were given an opportunity to express any concerns. Dragon disclaimer: This document was created in part using voice recognition technology. Because of the inherent limitations of the system ([employer]'s [employer] user manual states that the licensee understands that speech recognition is a statistical process and that recognition errors are inherent in the process), occasional same sounding word substitutions and grammatical errors do occur and persist despite proofreading. Please read this document for context.
[2018-12-09] MEDS ORDERED: ONDANSETRON 4 MG/2 ML VIAL ONE (10:00)
[2018-12-09 11:19] VITALS: BP 119/76
== END 2018-12-09 05:47 | disposition home or self-care (01) ==
LOC: SDS 05:46
PROVIDERS: ATTEND Surgery
PROC: 0FT44ZZ Resection of Gallbladder, Percutaneous Endoscopic Approach (ICD-10-PCS; principal; 2018-12-09 07:30)
DX: K80.10 Calculus of gallbladder with chronic cholecystitis without obstruction (principal); J45.909 Unspecified asthma, uncomplicated; K21.9 Gastro-esophageal reflux disease without esophagitis; E11.9 Type 2 diabetes mellitus without complications; E03.9 Hypothyroidism, unspecified; E78.00 Pure hypercholesterolemia, unspecified; F17.210 Nicotine dependence, cigarettes, uncomplicated; R32 Unspecified urinary incontinence; F20.9 Schizophrenia, unspecified; F31.81 Bipolar II disorder; K59.09 Other constipation; H40.9 Unspecified glaucoma; K64.9 Unspecified hemorrhoids; Z78.0 Asymptomatic menopausal state; Z79.84 Long term (current) use of oral hypoglycemic drugs; Z79.51 Long term (current) use of inhaled steroids
CPT/HCPCS: 47562; J0690; J7120

== ENCOUNTER 2019-09-19 20:54 | Outpatient (CLI) | payer OTHER, MEDICAID | END 2019-09-19 20:55 | disposition EMS.NT | LOC: EMS 20:54 | PROVIDERS: ATTEND Surgery | DX: Z03.89 Encounter for observation for other suspected diseases and conditions ruled out (principal) ==

== ENCOUNTER 2020-03-18 16:55 | Emergency (ER) | payer OTHER, MEDICAID ==
[2020-03-18 17:08] VITALS: BP 148/84
[2020-03-18] MEDS ORDERED: ALBUTEROL 1 PUFF INH STA (17:12)
--- NOTE | 2020-03-18 17:24 | ED Physician Documentation ---
PD HPI URI - Stated complaint Stated Complaint: COUGH,CONGESTION - Chief complaint Chief Complaint: Resp - History obtained from History obtained from: Patient, Caregiver - History of Present Illness Timing - onset: Today (3) Timing duration: Days (3) Pain level max: 1 Pain level now: 1 Associated symptoms: Nasal congestion, Sore throat (mild), Dry cough, Dyspnea (wheezing). No: Fever Contributing factors: COPD / asthma Improves by: Rest Worsened by: Activity Recently seen: Not recently seen - Additional information Additional information: 49 year old female with cough and congestion for 3 days. Worse with lying flat. Better sitting up. no fever. Dry cough. +smoking. States used to use inhalers, but doesn't now. Review of Systems Constitutional: denies: Fever Respiratory: denies: Dyspnea GI: denies: Vomiting, Diarrhea Skin: denies: Rash Musculoskeletal: denies: Neck pain, Back pain Neurologic: denies: Headache PD PAST MEDICAL HISTORY - Past Medical History Cardiovascular: None Respiratory: Asthma, Other Endocrine/Autoimmune: Type 2 diabetes, HyPOthyroidism GI: GERD, Hemorrhoids, Cholelithiasis : None HEENT: Chronic vision loss, Glaucoma, Other Psych: Anxiety, Bipolar disorder, Schizophrenia, Panic attacks Musculoskeletal: Osteoarthritis Derm: Other - Past Surgical History Past Surgical History: Yes General: Cholecystectomy HEENT: Other Derm: Skin grafts - Present Medications Home Medications: Ambulatory Orders Medication Instructions Recorded Confirmed Levothyroxine Sodium 137 mcg PO QDAC 05/26/16 03/18/20 Norethindrone-Ethinyl Estrad 1 each PO DAILY 05/26/16 03/18/20 [Cyclafem 1-35-28 Tablet] Omeprazole 20 mg PO DAILY 05/26/16 03/18/20 traZODone [Desyrel] 400 mg PO HS 05/26/16 03/18/20 hydrOXYzine PAMOATE [Vistaril] 25 mg PO BID 05/27/16 03/18/20 Metformin HCl 1,000 mg PO BID 07/22/16 03/18/20 glipiZIDE [Glucotrol] 10 mg PO BID 07/22/16 03/18/20 Brimonidine 0.15% Ophth Drops 1 drops EACHEYE BID 01/12/17 03/18/20 [Alphagan P 0.15% Ophth Drops] Pnv,Calcium 72/Iron,Carb/Folic 1 tab PO DAILY 01/12/17 03/18/20 [ Plus Iron Tablet] Timolol 0.25% Ophth Drops 1 drops EACHEYE BID 01/12/17 03/18/20 [Timoptic 0.25% Ophth Drops] Docusate Calcium 240 mg PO BID 10/24/18 03/18/20 Ergocalciferol [Vitamin D2] 1 cap PO DAILY 10/24/18 03/18/20 Benztropine [Cogentin] 2 mg PO BID 12/09/18 03/18/20 haloperidoL [Haldol] 5 mg PO BID 12/09/18 03/18/20 Albuterol Sulf [Ventolin Hfa 1 - 2 puffs INH Q4HR PRN #1 inhaler 03/18/20 Inhaler] Benzonatate [Tessalon] 200 mg PO TID PRN #30 capsule 03/18/20 - Allergies Allergies/Adverse Reactions: Allergies Allergy/AdvReac Type Severity Reaction Status Date / Time clozapine Allergy Unknown Verified 03/18/20 17:07 vraylar Allergy Unknown Uncoded 03/18/20 17:07 - Social History Does the pt smoke?: Yes Smoking Status: Current every day smoker Does the pt drink ETOH?: No Does the pt have substance abuse?: No - Immunizations Immunizations: TDAP >10years/unknown - POLST Patient has POLST: No PD ED PE NORMAL - Vitals Vital signs reviewed: Yes - General General: Alert and oriented X 3, No acute distress, Well developed/nourished - HEENT HEENT: PERRL, Ears normal, Moist mucous membranes, Pharynx benign - Neck Neck: Supple, no meningeal sign - Cardiac Cardiac: RRR - Respiratory Respiratory: No respiratory distress, Other (mild wheezing B) - Abdomen Abdomen: Soft, Non tender, Non distended - Derm Derm: Warm and dry - Neuro Neuro: Alert and oriented X 3 - Psych Psych: Normal mood, Normal affect Results - Vitals Vitals: Vital Signs - 24 hr 03/18/20 03/18/20 17:00 17:14 Temperature 37.1 C Heart Rate 111 H 103 H Respiratory 18 16 Rate Blood Pressure 148/84 H 148/84 H O2 Saturation 97 96 Oxygen O2 Source Room air - Rads (name of study) cxr Radiology: Prelim report reviewed, EMP read contemporaneously, See rad report PD MEDICAL DECISION MAKING - ED course Complexity details: reviewed results, re-evaluated patient, considered differential, d/w patient ED course: Patient is well-appearing, nontoxic. Afebrile. No hypoxia. No respiratory distress. Will prescribe inhaler for home. No pneumonia. Covid test pending. Patient counseled regarding signs and symptoms for which I believe and urgent re-evaluation would be necessary. Patient with good understanding of and agreement to plan and is comfortable going home at this time This document was made in part using voice recognition software. While efforts are made to proofread this document, sound alike and grammatical errors may occur. Coarse interstitial markings are nonspecific and may be related to interstitial lung disease or viral pneumonitis. Departure - Departure Disposition: Home, Self Care Clinical Impression: Viral URI Condition: Good Instructions: ED URI Viral Follow-Up: AJIT LOREDO DO [Primary Care Provider] - Within 1 week Prescriptions: Albuterol Sulf [Ventolin Hfa Inhaler] 1 - 2 puffs INH Q4HR PRN #1 inhaler PRN Reason: Shortness Of Air/Wheezing Benzonatate [Tessalon] 200 mg PO TID PRN #30 capsule PRN Reason: Cough Comments: Drink plenty of fluids and rest. Return if you worsen. Your x-ray does not show any pneumonia. Follow-up with your doctor for further care. You have a Covid test pending. You need to self quarantine until the result is done and negative. Do not leave your house. Do not get near anybody. The results should be done in 48 to 72 hours. We will call with a positive result, the fastest way to get a negative result for confirmation though is to go to the hospital website at [email or web address], click on the my [facility] tab and sign up for the patient portal. If any friends or family get sick and would like to have a Covid test done, but do not have signs or symptoms that would necessitate being hospitalized, we encourage testing through our coronavirus swabbing station, call [phone] to schedule an appointment.
--- NOTE | 2020-03-18 17:32 | XRAY Report ---
PROCEDURE: Chest 1 View X-Ray INDICATIONS: cough TECHNIQUE: One view of the chest was acquired. COMPARISON: None FINDINGS: Surgical changes and devices: None. Lungs and pleura: No pleural effusions or pneumothorax. Lungs demonstrate coarse interstitial kiara ngs bilaterally. No dense consolidations. Mediastinum: Mediastinal contours appear normal. Heart size is normal. Bones and chest wall: No suspicious bony lesions. Overlying soft tissues appear unremarkable. IMPRESSION: Coarse interstitial markings are nonspecific and may be related to interstitial lung disease or viral pneumonitis. Reviewed by: Simona Guevara MD on 03/18/2020 5:31 PM PST Approved by: Simona Guevara MD on 03/18/2020 5:31 PM PST Station ID: [id number]
== END 2020-03-18 17:53 | disposition home or self-care (01) ==
LOC: ED 16:55
DX: J06.9 Acute upper respiratory infection, unspecified (principal); E11.9 Type 2 diabetes mellitus without complications; Z79.84 Long term (current) use of oral hypoglycemic drugs; F17.200 Nicotine dependence, unspecified, uncomplicated
CPT/HCPCS: 94640; 94664; 99284

== ENCOUNTER 2021-03-03 19:08 | Outpatient (CLI) | payer OTHER, MEDICAID | END 2021-03-03 19:09 | disposition EMS.NT | LOC: EMS 19:08 | DX: Z03.89 Encounter for observation for other suspected diseases and conditions ruled out (principal) ==

== ENCOUNTER 2021-04-22 20:54 | Emergency (ER) | payer OTHER, MEDICAID ==
--- NOTE | 2021-04-22 21:42 | ED Physician Documentation ---
History of Present Illness - Stated complaint Stated Complaint: COGNITIVE ISSUES - Chief complaint Chief Complaint: Neuro - History obtained from History obtained from: Patient, Caregiver - Additonal information Additional information: Patient with a history of bipolar disorder and schizophrenia is brought to the emergency department by her caregiver for chief complaint of altered mental status. Caregiver states the patient has been having "staring episodes" that come on randomly, but are punctuated by periods of clarity. The patient will be at baseline in between and then suddenly stare off in response to being questions were spoken to. The caregiver states it started yesterday and was actually a lot worse yesterday than it is today. Patient has not seemed to have had any symptoms of illness. No complaints of pain or nausea, and no fevers. No respiratory symptoms. Caregiver thinks that the patient did not eat much over the weekend, when she is without a caregiver. However, she ate well yesterday and today. The patient has been taking her medications, her caregiver thinks, but he does note that the patient was recently weaned off her Haldol and benztropine while started on Prozac a few months ago. Patient is currently not on an antipsychotic, but only on the Prozac plus trazodone. She sees a psychiatrist at [facility] and has an appointment in 3 days. Patient other maurer behaviorally has been at baseline. She denies complaints. She thinks she has been eating fine and does not think anything is out of the ordinary. She cannot explain the staring spells. Review of Systems Ten Systems: 10 systems reviewed and negative Constitutional: reports: Reviewed and negative Eyes: reports: Reviewed and negative Ears: reports: Reviewed and negative Nose: reports: Reviewed and negative Throat: reports: Reviewed and negative Cardiac: reports: Reviewed and negative Respiratory: reports: Reviewed and negative GI: reports: Reviewed and negative : reports: Reviewed and negative Skin: reports: Reviewed and negative Musculoskeletal: reports: Reviewed and negative Neurologic: reports: Reviewed and negative Psychiatric: reports: Reviewed and negative Endocrine: reports: Reviewed and negative Immunocompromised: reports: Reviewed and negative PD PAST MEDICAL HISTORY - Past Medical History Cardiovascular: None Respiratory: Asthma, Other Endocrine/Autoimmune: Type 2 diabetes, HyPOthyroidism GI: GERD, Hemorrhoids, Cholelithiasis : None HEENT: Chronic vision loss, Glaucoma, Other Psych: Anxiety, Bipolar disorder, Schizophrenia, Panic attacks Musculoskeletal: Osteoarthritis Derm: Other - Past Surgical History Past Surgical History: Yes General: Cholecystectomy HEENT: Other Derm: Skin grafts - Present Medications Home Medications: Ambulatory Orders Medication Instructions Recorded Confirmed Levothyroxine Sodium 125 mcg PO QDAC 05/26/16 04/22/21 Norethindrone-Ethinyl Estrad 1 each PO DAILY 05/26/16 04/22/21 [Cyclafem 1-35-28 Tablet] Omeprazole 20 mg PO DAILY 05/26/16 04/22/21 traZODone [Desyrel] 400 mg PO HS 05/26/16 04/22/21 hydrOXYzine PAMOATE [Vistaril] 25 mg PO BID 05/27/16 04/22/21 Metformin HCl 1,000 mg PO BID 07/22/16 04/22/21 glipiZIDE [Glucotrol] 10 mg PO BID 07/22/16 04/22/21 Brimonidine 0.15% Ophth Drops 1 drops EACHEYE BID 01/12/17 03/18/20 [Alphagan P 0.15% Ophth Drops] Pnv,Calcium 72/Iron,Carb/Folic 1 tab PO DAILY 01/12/17 04/22/21 [ Plus Iron Tablet] Timolol 0.25% Ophth Drops 1 drops EACHEYE BID 01/12/17 04/22/21 [Timoptic 0.25% Ophth Drops] Docusate Calcium 240 mg PO BID 10/24/18 04/22/21 Ergocalciferol [Vitamin D2] 1 cap PO DAILY 10/24/18 04/22/21 Albuterol Sulf [Ventolin Hfa 1 - 2 puffs INH Q4HR PRN #1 inhaler 03/18/20 Inhaler] - Allergies Allergies/Adverse Reactions: Allergies Allergy/AdvReac Type Severity Reaction Status Date / Time clozapine Allergy Unknown Verified 04/22/21 21:06 vraylar Allergy Unknown Uncoded 04/22/21 21:06 - Social History Does the pt smoke?: Yes Smoking Status: Current every day smoker Does the pt drink ETOH?: No Does the pt have substance abuse?: No - Immunizations Immunizations: TDAP >10years/unknown - POLST Patient has POLST: No PD ED PE NORMAL - Vitals Vital signs reviewed: Yes - General General: No acute distress, Other (Alert, intermittently conversant patient in no distress) - HEENT HEENT: Atraumatic, PERRL, EOMI, Moist mucous membranes - Neck Neck: Supple, no meningeal sign - Cardiac Cardiac: RRR, No murmur, Strong equal pulses - Respiratory Respiratory: No respiratory distress, Clear bilaterally - Abdomen Abdomen: Soft, Non tender, Non distended - Derm Derm: Normal color, Warm and dry, No rash - Extremities Extremities: No deformity, No edema - Neuro Neuro: Other (Alert and grossly intact. Speech is clear with appropriate wording and clear diction. No aphasia. When asked a question, the patient sometimes stares and begins to move her lips silently, but in between, is appropriate. No tonic-clonic movements.) - Psych Psych: Normal mood, Other (Calm, appears to be intermittently responding to internal stimuli, but otherwise normal affect.) Results - Vitals Vitals: Vital Signs - 24 hr 04/22/21 04/22/21 04/22/21 20:57 21:14 22:59 Temperature 36.0 C L 36.2 C L Heart Rate 98 80 72 Respiratory 16 16 16 Rate Blood Pressure 151/80 H 144/94 H 145/89 H O2 Saturation 97 97 98 Oxygen O2 Source Room air - Labs Labs: Laboratory Tests 04/22/21 04/22/21 04/22/21 21:45 21:51 21:51 WBC 9.0 RBC 5.09 Hgb 14.9 Hct 43.4 MCV 85.3 MCH 29.3 MCHC 34.3 RDW 13.2 Plt Count 263 MPV 9.2 Neut # (Auto) 5.0 Lymph # (Auto) 3.0 [place] # (Auto) 0.8 Eos # (Auto) 0.1 Baso # (Auto) 0.0 Absolute Nucleated RBC 0.00 Nucleated RBC % 0.0 Sodium 131 L Potassium 3.7 Chloride 96 L Carbon Dioxide 18 L Anion Gap 17.0 H BUN 8 Creatinine 0.8 Estimated GFR (MDRD) 76 L Glucose 161 H Calcium 9.0 Total Bilirubin 1.5 H AST 21 ALT 18 Alkaline Phosphatase 77 Total Protein 7.6 Albumin 4.1 Globulin 3.5 Albumin/Globulin Ratio 1.2 Lipase 31 Urine Color YELLOW Urine Clarity CLEAR Urine pH 5.5 Ur Specific [place] >=1.030 H Urine Protein NEGATIVE Urine Glucose (UA) >=1000 H Urine Ketones >=80 H Urine Occult Blood TRACE-INTA Urine Nitrite NEGATIVE Urine Bilirubin NEGATIVE Urine Urobilinogen 0.2 (NORMAL) Ur Leukocyte Esterase NEGATIVE Ur Microscopic Review NOT INDICATED Urine Culture Comments NOT INDICATED PD MEDICAL DECISION MAKING - ED course Complexity details: reviewed old records, reviewed results, re-evaluated patient, considered differential, d/w patient ED course: I reviewed the patient's medication list with her caregiver and I suspected that it was most likely the change in medications that had caused the onset of staring episodes. Patient does not have a seizure history and although the differential diagnosis includes partial seizures, I feel this is less likely than some decompensation after removal of the Haldol, since patient is not on any other antipsychotic. However, I did obtain laboratory studies to evaluate for anything else that may be contributing.The patient was found to have moderate hyperglycemia on labs and some mild electrolyte abnormalities, but no major findings. She did not have a UTI, but did have some concentration of her urine. I discussed all of this with the patient and her caregiver. I have recommended that she drink plenty of fluids, as she probably is not getting quite enough to drink, and that she add a sports drink for the next few days to correct some of her electrolytes. Patient should follow-up as scheduled with her psychiatrist on Wednesday to discuss whether there should be any further changes to her medication regimen. At this point in time, the patient is alert and speaking appropriately and I feel she is stable for discharge home. Caregiver is also comfortable with this. We have discussed the usual indications for return. Departure - Departure Disposition: Home, Self Care Clinical Impression: Medication not effective Schizophrenia Qualifiers: Schizophrenia type: unspecified Qualified Code(s): F20.9 - Schizophrenia, unspecified Condition: Stable Instructions: ED Schizophrenia General Comments: Nadya has some mild electrolyte abnormalities, and perhaps would benefit from having a sports drink with electrolytes once a day for the next few days. However, no major abnormalities or concerns have arisen from the laboratory studies otherwise. She does not have a urinary tract infection. At this point in time, while partial seizures are a possibility, the much more likely possibility based on the nature of Nadya's episodes and the recent medication changes is an uptick in her hallucinations. It is possible that once she gets accustomed to being off the Haldol, her symptoms will down. However, it is worth bringing up with her psychiatrist when she goes to her appointment on Wednesday, to see if an antipsychotic should be added to her regimen. Please encourage Nadya to drink plenty of fluids, as she does appear to be very mildly dehydrated. Discharge Date/Time: 04/22/21 23:00
[2021-04-22 21:49] LABS: BILIRUBIN,URINE NEGATIVE (NEGATIVE); GLUCOSE, URINE (UA) >=1000 mg/dL (NEGATIVE); KETONES,URINE (UA) >=80 mg/dL (NEGATIVE); LEUKOCYTE ESTERASE, URINE NEGATIVE (NEGATIVE); NITRITE,URINE NEGATIVE (NEGATIVE); OCCULT BLOOD,URINE TRACE-INTA (NEGATIVE); PH,URINE 5.5 PH (5.0-7.5); PROTEIN,URINE NEGATIVE (NEGATIVE); UROBILINOGEN,URINE 0.2 (NORMAL) E.U./dL (NORMAL)
[2021-04-22 21:55] LABS: BASOPHILS % (AUTO) 0.4 %; EOSINOPHILS # (AUTO) 0.1 10^3/uL (0.0-0.7); EOSINOPHILS % (AUTO) 1.3 %; HCT - HEMATOCRIT 43.4 % (37.0-47.0); HGB - HEMOGLOBIN 14.9 g/dL (12.0-16.0); LYMPHOCYTES % (AUTO) 33.7 %; MEAN CORPUSCULAR HEMOGLOBIN 29.3 pg (27.0-31.0); MEAN CORPUSCULAR HGB CONC 34.3 g/dL (32.0-36.0); MEAN CORPUSCULAR VOLUME 85.3 fL (81.0-99.0); MEAN PLATELET VOLUME 9.2 fL (7.9-10.8); MONOCYTES # (AUTO) 0.8 10^3/uL (0.0-1.0); MONOCYTES % (AUTO) 8.4 %; NEUTROPHILS % (AUTO) 55.9 %; PLT - PLATELET COUNT 263 10^3/uL (130-450); RED BLOOD COUNT 5.09 10^6/uL (4.20-5.40); RED CELL DISTRIBUTION WIDTH 13.2 % (12.0-15.0)
[2021-04-22 21:57] LABS: CLARITY,URINE CLEAR (CLEAR)
[2021-04-22 22:09] LABS: ALBUMIN 4.1 g/dL (3.2-5.5); ALBUMIN/GLOBULIN RATIO 1.2 (1.0-2.2); BILIRUBIN,TOTAL 1.5 mg/dL (0.2-1.0); CREATININE 0.8 mg/dL (0.4-1.0); POTASSIUM 3.7 mmol/L (3.5-5.0); TOTAL PROTEIN 7.6 g/dL (6.7-8.2)
[2021-04-22 23:01] VITALS: BP 145/89
== END 2021-04-22 23:00 | disposition home or self-care (01) ==
LOC: ED 20:54
DX: Z91.14 Patient's other noncompliance with medication regimen (principal); E11.9 Type 2 diabetes mellitus without complications; Z79.84 Long term (current) use of oral hypoglycemic drugs; F17.200 Nicotine dependence, unspecified, uncomplicated; F20.9 Schizophrenia, unspecified
CPT/HCPCS: 36415; 80053; 81001; 81003; 83690; 85025; 87086; 99283

== ENCOUNTER 2021-05-30 17:32 | Emergency (ER) | payer OTHER, MEDICAID ==
[2021-05-30 18:39] LABS: BASOPHILS % (AUTO) 0.3 %; EOSINOPHILS # (AUTO) 0.2 10^3/uL (0.0-0.7); EOSINOPHILS % (AUTO) 2.5 %; HCT - HEMATOCRIT 41.7 % (37.0-47.0); HGB - HEMOGLOBIN 14.2 g/dL (12.0-16.0); LYMPHOCYTES % (AUTO) 39.1 %; MEAN CORPUSCULAR HEMOGLOBIN 29.8 pg (27.0-31.0); MEAN CORPUSCULAR HGB CONC 34.1 g/dL (32.0-36.0); MEAN CORPUSCULAR VOLUME 87.6 fL (81.0-99.0); MEAN PLATELET VOLUME 9.3 fL (7.9-10.8); MONOCYTES # (AUTO) 0.5 10^3/uL (0.0-1.0); NEUTROPHILS % (AUTO) 51.8 %; PLT - PLATELET COUNT 234 10^3/uL (130-450); RED BLOOD COUNT 4.76 10^6/uL (4.20-5.40); RED CELL DISTRIBUTION WIDTH 13.1 % (12.0-15.0); WHITE BLOOD COUNT 7.7 x10^3/uL (4.8-10.8)
[2021-05-30 18:53] LABS: ACETAMINOPHEN < 10 ug/mL (10-30); ALBUMIN 3.6 g/dL (3.2-5.5); ALBUMIN/GLOBULIN RATIO 1.1 (1.0-2.2); ALKALINE PHOSPHATASE 64 IU/L (42-121); ALT ALANINE AMINOTRANSFERASE 13 IU/L (10-60); AST ASPARTATE AMINOTRANSFERASE 13 IU/L (10-42); BILIRUBIN,TOTAL 0.3 mg/dL (0.2-1.0); BUN - BLOOD UREA NITROGEN 12 mg/dL (6-20); CALCIUM 8.6 mg/dL (8.5-10.3); CARBON DIOXIDE - CO2 24 mmol/L (21-32); CHLORIDE 96 mmol/L (101-111); CREATININE 0.9 mg/dL (0.4-1.0); ETOH - ETHANOL < 5.0 mg/dL; GFR - MDRD 66 (>89); GLUCOSE 326 mg/dL (70-100); LIPASE 30 U/L (22-51); SALICYLATE < 6.0 mg/dL; SODIUM 133 mmol/L (135-145)
[2021-05-30 22:06] LABS: MUDS CUTOFF CONCENTRATIONS CUTOFF CONC BELOW:
[2021-05-30 22:09] LABS: BILIRUBIN,URINE NEGATIVE (NEGATIVE); GLUCOSE, URINE (UA) >=1000 mg/dL (NEGATIVE); KETONES,URINE (UA) NEGATIVE (NEGATIVE); LEUKOCYTE ESTERASE, URINE NEGATIVE (NEGATIVE); NITRITE,URINE NEGATIVE (NEGATIVE); OCCULT BLOOD,URINE NEGATIVE (NEGATIVE); PROTEIN,URINE NEGATIVE (NEGATIVE); UROBILINOGEN,URINE 0.2 (NORMAL) E.U./dL (NORMAL)
[2021-05-30 22:13] LABS: CLARITY,URINE CLEAR (CLEAR)
[2021-05-30 22:31] LABS: AMPHETAMINE SCREEN,URINE NEGATIVE (NEGATIVE); BARBITURATE SCREEN,UR NEGATIVE (NEGATIVE); BENZODIAZEPINES SCREEN, URINE NEGATIVE (NEGATIVE); COCAINE SCREEN URINE NEGATIVE (NEGATIVE); METHADONE SCREEN, URINE NEGATIVE (NEGATIVE); METHAMPHETAMINES SCREEN, URINE NEGATIVE (NEGATIVE); OPIATE SCREEN, URINE NEGATIVE (NEGATIVE); OXYCODONE SCREEN, URINE NEGATIVE (NEGATIVE); PROPOXYPHENE SCREEN, URINE NEGATIVE (NEGATIVE); THC CANNABINOID SCREEN, URINE NEGATIVE (NEGATIVE); TRICYCLIC ANTIDEPRESSANT,URINE NEGATIVE (NEGATIVE)
--- NOTE | 2021-05-31 01:07 | ED Physician Documentation ---
PD HPI MHE - Stated complaint Stated Complaint: MHE - Chief complaint Chief Complaint: MHE - History obtained from History obtained from: Caregiver - Additional information Additional information: Patient brought in by her caregiver for evaluation of recent change in behavior. Patient has a history significant for bipolar and schizophrenia.Per the caregiver over the last 2 to 3 weeks, patient has seemingly lost interest in many things that she would enjoy such as shopping, talking on the phone with him, eating out. She is often staying in bed and not combing her hair. She is not taking off her shoes and missing doses of her medications. She is not eating on her own but will eat when he brings her food. He has not with her all the time and she is supposed to check on her once a day. However he has been taking it upon himself to check on her twice a day given her frequent missing of meals and her medications.She has not been some Homicidal or suicidal. She has had recent medication changes from her psychiatrist and is being weaned off of Haldol. She was seen with ago with similar concerns.To cover does not feel that she is safe to be alone at home given her diabetes and missing of meals. Review of Systems Constitutional: denies: Fever Nose: denies: Congestion Cardiac: denies: Chest pain / pressure Respiratory: denies: Dyspnea, Cough GI: denies: Abdominal Pain, Vomiting, Diarrhea : denies: Dysuria Skin: denies: Rash Neurologic: denies: Headache Psychiatric: denies: Suicidal PD PAST MEDICAL HISTORY - Past Medical History Past Medical History: Yes Cardiovascular: None Respiratory: Asthma, Other Endocrine/Autoimmune: Type 2 diabetes, HyPOthyroidism GI: GERD, Hemorrhoids, Cholelithiasis : None HEENT: Chronic vision loss, Glaucoma, Other Psych: Anxiety, Bipolar disorder, Schizophrenia, Panic attacks Musculoskeletal: Osteoarthritis Derm: Other - Past Surgical History Past Surgical History: Yes General: Cholecystectomy HEENT: Other Derm: Skin grafts - Present Medications Home Medications: Ambulatory Orders Medication Instructions Recorded Confirmed Levothyroxine Sodium 125 mcg PO QDAC 05/26/16 05/31/21 Norethindrone-Ethinyl Estrad 1 each PO DAILY 05/26/16 05/31/21 [Cyclafem 1-35-28 Tablet] Omeprazole 20 mg PO DAILY 05/26/16 05/31/21 traZODone [Desyrel] 400 mg PO HS 05/26/16 05/31/21 hydrOXYzine PAMOATE [Vistaril] 25 mg PO BID 05/27/16 05/31/21 Metformin HCl 1,000 mg PO BID 07/22/16 05/31/21 glipiZIDE [Glucotrol] 10 mg PO BID 07/22/16 05/31/21 Brimonidine 0.15% Ophth Drops 1 drops EACHEYE BID 01/12/17 05/31/21 [Alphagan P 0.15% Ophth Drops] Pnv,Calcium 72/Iron,Carb/Folic 1 tab PO DAILY 01/12/17 05/31/21 [ Plus Iron Tablet] Timolol 0.25% Ophth Drops 1 drops EACHEYE BID 01/12/17 05/31/21 [Timoptic 0.25% Ophth Drops] Docusate Calcium 240 mg PO BID 10/24/18 05/31/21 Ergocalciferol [Vitamin D2] 1 cap PO DAILY 10/24/18 05/31/21 Albuterol Sulf [Ventolin Hfa 1 - 2 puffs INH Q4HR PRN #1 inhaler 03/18/20 05/31/21 Inhaler] Empagliflozin [Jardiance] 10 mg PO DAILY 05/30/21 05/31/21 Pioglitazone [Actos] 15 mg PO DAILY 05/30/21 05/31/21 Pirmella 1 tab PO DAILY 05/30/21 Rosuvastatin Calcium [Crestor] 10 mg PO QPM 05/30/21 05/31/21 haloperidoL [Haldol] 1 tab PO QPM 05/30/21 05/30/21 - Allergies Allergies/Adverse Reactions: Allergies Allergy/AdvReac Type Severity Reaction Status Date / Time clozapine Allergy Unknown Verified 05/30/21 17:46 vraylar Allergy Unknown Uncoded 05/30/21 17:46 - Social History Does the pt smoke?: Yes Smoking Status: Current every day smoker Does the pt drink ETOH?: No Does the pt have substance abuse?: No - Immunizations Immunizations: TDAP >10years/unknown - POLST Patient has POLST: No PD ED PE NORMAL - General General: Alert and oriented X 3, No acute distress, Well developed/nourished - HEENT HEENT: Atraumatic, Moist mucous membranes - Neck Neck: Supple, no meningeal sign - Cardiac Cardiac: RRR, No murmur, Strong equal pulses - Respiratory Respiratory: No respiratory distress, Clear bilaterally - Abdomen Abdomen: Normal bowel sounds, Soft, Non tender - Derm Derm: Normal color, Warm and dry - Extremities Extremities: No edema - Neuro Neuro: Alert and oriented X 3, No motor deficit, No sensory deficit, Normal speech - Psych Psych: Normal mood, Normal affect, Other (Does not appear acutely psychotic, asking to go home) Results - Vitals Vitals: Vital Signs - 24 hr 05/31/21 05/31/21 00:01 10:17 Temperature 36.9 C 36.9 C Heart Rate 67 110 H Respiratory 18 24 Rate Blood Pressure 119/67 108/56 L O2 Saturation 96 95 Oxygen O2 Source Room air - EKG (time done) 2349 Rate: Rate (enter#) (52) Rhythm: Sinus bradycardia [place]: Normal Ischemia: No: ST elevation c/w ischemia - Labs Labs: Laboratory Tests 05/30/21 05/30/21 05/30/21 18:23 18:23 18:23 WBC 7.7 RBC 4.76 Hgb 14.2 Hct 41.7 MCV 87.6 MCH 29.8 MCHC 34.1 RDW 13.1 Plt Count 234 MPV 9.3 Neut # (Auto) 4.0 Lymph # (Auto) 3.0 [place] # (Auto) 0.5 Eos # (Auto) 0.2 Baso # (Auto) 0.0 Absolute Nucleated RBC 0.00 Nucleated RBC % 0.0 Sodium 133 L Potassium 4.0 Chloride 96 L Carbon Dioxide 24 Anion Gap 13.0 BUN 12 Creatinine 0.9 Estimated GFR (MDRD) 66 L Glucose 326 H POC Whole Bld Glucose Calcium 8.6 Total Bilirubin 0.3 AST 13 ALT 13 Alkaline Phosphatase 64 Total Protein 7.0 Albumin 3.6 Globulin 3.4 Albumin/Globulin Ratio 1.1 Lipase 30 TSH < 0.08 L Free T4 Urine Color Urine Clarity Urine pH Ur Specific [place] Urine Protein Urine Glucose (UA) Urine Ketones Urine Occult Blood Urine Nitrite Urine Bilirubin Urine Urobilinogen Ur Leukocyte Esterase Ur Microscopic Review Urine Culture Comments Salicylates < 6.0 Urine Opiates Screen Ur Oxycodone Screen Urine Methadone Screen Ur Propoxyphene Screen Acetaminophen < 10 L Ur Barbiturates Screen Ur Tricyclics Screen Ur Phencyclidine Scrn Ur Amphetamine Screen U Methamphetamines Scrn U Benzodiazepines Scrn Urine Cocaine Screen U Cannabinoids Screen Ethyl Alcohol < 5.0 SARS-CoV-2 (PCR) 05/30/21 05/30/21 05/30/21 18:23 22:00 22:00 WBC RBC Hgb Hct MCV MCH MCHC RDW Plt Count MPV Neut # (Auto) Lymph # (Auto) [place] # (Auto) Eos # (Auto) Baso # (Auto) Absolute Nucleated RBC Nucleated RBC % Sodium Potassium Chloride Carbon Dioxide Anion Gap BUN Creatinine Estimated GFR (MDRD) Glucose POC Whole Bld Glucose Calcium Total Bilirubin AST ALT Alkaline Phosphatase Total Protein Albumin Globulin Albumin/Globulin Ratio Lipase TSH Free T4 1.78 H Urine Color YELLOW Urine Clarity CLEAR Urine pH 6.0 Ur Specific [place] 1.010 Urine Protein NEGATIVE Urine Glucose (UA) >=1000 H Urine Ketones NEGATIVE Urine Occult Blood NEGATIVE Urine Nitrite NEGATIVE Urine Bilirubin NEGATIVE Urine Urobilinogen 0.2 (NORMAL) Ur Leukocyte Esterase NEGATIVE Ur Microscopic Review NOT INDICATED Urine Culture Comments NOT INDICATED Salicylates Urine Opiates Screen NEGATIVE Ur Oxycodone Screen NEGATIVE Urine Methadone Screen NEGATIVE Ur Propoxyphene Screen NEGATIVE Acetaminophen Ur Barbiturates Screen NEGATIVE Ur Tricyclics Screen NEGATIVE Ur Phencyclidine Scrn NEGATIVE Ur Amphetamine Screen NEGATIVE U Methamphetamines Scrn NEGATIVE U Benzodiazepines Scrn NEGATIVE Urine Cocaine Screen NEGATIVE U Cannabinoids Screen NEGATIVE Ethyl Alcohol SARS-CoV-2 (PCR) NOT DETECTED 05/31/21 06:56 WBC RBC Hgb Hct MCV MCH MCHC RDW Plt Count MPV Neut # (Auto) Lymph # (Auto) [place] # (Auto) Eos # (Auto) Baso # (Auto) Absolute Nucleated RBC Nucleated RBC % Sodium Potassium Chloride Carbon Dioxide Anion Gap BUN Creatinine Estimated GFR (MDRD) Glucose POC Whole Bld Glucose 215 H Calcium Total Bilirubin AST ALT Alkaline Phosphatase Total Protein Albumin Globulin Albumin/Globulin Ratio Lipase TSH Free T4 Urine Color Urine Clarity Urine pH Ur Specific [place] Urine Protein Urine Glucose (UA) Urine Ketones Urine Occult Blood Urine Nitrite Urine Bilirubin Urine Urobilinogen Ur Leukocyte Esterase Ur Microscopic Review Urine Culture Comments Salicylates Urine Opiates Screen Ur Oxycodone Screen Urine Methadone Screen Ur Propoxyphene Screen Acetaminophen Ur Barbiturates Screen Ur Tricyclics Screen Ur Phencyclidine Scrn Ur Amphetamine Screen U Methamphetamines Scrn U Benzodiazepines Scrn Urine Cocaine Screen U Cannabinoids Screen Ethyl Alcohol SARS-CoV-2 (PCR) PD MEDICAL DECISION MAKING - ED course ED course: Patient brought in for evaluation by her caregiver for concerns that she is exhibiting changes to her behavior and no longer adequately caring for herself.She currently appears well dressed and well groomed.Vital signs are stable. Patient has no complaints it is not suicidal or homicidal.Labs demonstrate mild hyperglycemia. She does not appear to be in DKA.Free T4 is slightly above normal range. Do not believe this is the cause of her symptoms. Caregiver is not scheduled to check on her this weekend. He believes that she will not eat unless he Is there. He expresses concerns for her safety and does not want to take her home.Patient will be held in the emergency department overnight pending a social work consult in the morning. She does not appear to be gravely disabled at this time. She is not suicidal or homicidal therefore I do not think she warrants involuntary psychiatric admission. Discussed with charge nurse who also agrees. Patient is on a number of medications at home, some of which are not carried here at this hospital. I have ordered Metformin, glipizide and levothyroxine. Other medications including Jardiance and Actos are not available. May need to contact caregiver in the morning about bringing in patient's medications. 0700- Patient to be signed out to morning physician. She is awaiting social work consult. Departure - Departure Disposition: 01 Home, Self Care Clinical Impression: Does not take medication, Psychiatric symptoms Condition: Stable Comments: Be sure to continue usual medications. Stay well hydrated and regular diet. Return if worsening symptoms overall or if under hydrating or ill otherwise. Discharge Date/Time: 05/31/21 14:23
[2021-05-31] MEDS: LEVOTHYROXINE 125 MCG TABLET PO SCH (06:59)
[2021-05-31] MEDS: glipiZIDE 5 MG TABLET PO SCH (09:26)
[2021-05-31] MEDS: metFORMIN 500 MG TABLET PO SCH (09:26)
[2021-05-31 10:18] VITALS: BP 108/56
[2021-05-31] MEDS: ACETAMINOPHEN 325 MG TABLET PO STA (12:55)
[2021-05-31] MEDS: haloperidoL 1 MG TABLET PO STA (12:55)
--- NOTE | 2021-05-31 12:57 | ED Physician Documentation ---
ED Addendum - Addendum Addendum: 05/31/21 12:54Social work augustin talked with the patient and her caregiver. They worked out a plan for the patient to be still at home. The patient seemed willing to take medications here. She was given some Tylenol and a oral dose smaller of her usual haloperidol than she would take at night. This at least showed her willingness to take medications when offered. The patient did not seem impaired enough to meet the level of grave disability at this point. The outreach and education social worker did not feel the DCR was warranted at this point. We will see how she does over the next several days to week at home and if still not taken medications or escalating symptoms then she may need to come back to the ER. Disposition: The patient is discharged home in stable condition. Diagnoses: 1. Unwillingness to take medications 2. Under hydration 3. Psychiatric disorder
== END 2021-05-31 14:23 | disposition home or self-care (01) ==
LOC: ED 17:32
DX: E11.65 Type 2 diabetes mellitus with hyperglycemia (principal); Z79.84 Long term (current) use of oral hypoglycemic drugs; Z91.14 Patient's other noncompliance with medication regimen; F17.200 Nicotine dependence, unspecified, uncomplicated; Z20.822 Contact with and (suspected) exposure to COVID-19
CPT/HCPCS: 36415; 80053; 80306; 80307; 80320; 80329; 81003; 83690; 84439; 84443; 85025; 87635; 93005; 99283; A9270; 81001; 87086

== ENCOUNTER 2021-07-02 07:32 | Outpatient (CLI) | payer OTHER, MEDICAID | END 2021-07-02 07:33 | disposition critical access hospital (66) | LOC: EMS 07:32 | DX: R41.82 Altered mental status, unspecified (principal); R46.89 Other symptoms and signs involving appearance and behavior; R44.1 Visual hallucinations; R62.7 Adult failure to thrive; Z74.8 Other problems related to care provider dependency | CPT/HCPCS: A0425; A0429 ==

== ENCOUNTER 2021-07-02 07:51 | Emergency (ER) | payer OTHER, MEDICAID ==
[2021-07-02 08:16] LABS: BASOPHILS % (AUTO) 0.4 %; EOSINOPHILS # (AUTO) 0.1 10^3/uL (0.0-0.7); EOSINOPHILS % (AUTO) 0.7 %; HCT - HEMATOCRIT 44.2 % (37.0-47.0); HGB - HEMOGLOBIN 15.1 g/dL (12.0-16.0); LYMPHOCYTES # (AUTO) 1.6 10^3/uL (1.5-3.5); LYMPHOCYTES % (AUTO) 17.1 %; MEAN CORPUSCULAR HEMOGLOBIN 29.7 pg (27.0-31.0); MEAN CORPUSCULAR HGB CONC 34.2 g/dL (32.0-36.0); MEAN PLATELET VOLUME 8.7 fL (7.9-10.8); MONOCYTES # (AUTO) 0.5 10^3/uL (0.0-1.0); MONOCYTES % (AUTO) 4.8 %; NEUTROPHILS # (AUTO) 7.3 10^3/uL (1.5-6.6); NEUTROPHILS % (AUTO) 76.5 %; PLT - PLATELET COUNT 258 10^3/uL (130-450); RED BLOOD COUNT 5.08 10^6/uL (4.20-5.40); RED CELL DISTRIBUTION WIDTH 13.3 % (12.0-15.0); WHITE BLOOD COUNT 9.6 x10^3/uL (4.8-10.8)
[2021-07-02 08:29] LABS: ALBUMIN 3.9 g/dL (3.2-5.5); ALBUMIN/GLOBULIN RATIO 1.1 (1.0-2.2); ALKALINE PHOSPHATASE 72 IU/L (42-121); ALT ALANINE AMINOTRANSFERASE 15 IU/L (10-60); AST ASPARTATE AMINOTRANSFERASE 17 IU/L (10-42); BUN - BLOOD UREA NITROGEN 12 mg/dL (6-20); CALCIUM 8.9 mg/dL (8.5-10.3); CARBON DIOXIDE - CO2 22 mmol/L (21-32); CHLORIDE 97 mmol/L (101-111); CREATININE 0.6 mg/dL (0.4-1.0); ETOH - ETHANOL < 5.0 mg/dL; GFR - MDRD 105 (>89); GLUCOSE 169 mg/dL (70-100); LIPASE 32 U/L (22-51); POTASSIUM 3.8 mmol/L (3.5-5.0); SODIUM 133 mmol/L (135-145); TOTAL PROTEIN 7.6 g/dL (6.7-8.2)
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
[2021-07-02 13:44] LABS: MUDS CUTOFF CONCENTRATIONS CUTOFF CONC BELOW:
[2021-07-02 13:56] LABS: AMPHETAMINE SCREEN,URINE NEGATIVE (NEGATIVE); BARBITURATE SCREEN,UR NEGATIVE (NEGATIVE); BENZODIAZEPINES SCREEN, URINE NEGATIVE (NEGATIVE); COCAINE SCREEN URINE NEGATIVE (NEGATIVE); METHADONE SCREEN, URINE NEGATIVE (NEGATIVE); METHAMPHETAMINES SCREEN, URINE NEGATIVE (NEGATIVE); OPIATE SCREEN, URINE NEGATIVE (NEGATIVE); OXYCODONE SCREEN, URINE NEGATIVE (NEGATIVE); PROPOXYPHENE SCREEN, URINE NEGATIVE (NEGATIVE); THC CANNABINOID SCREEN, URINE NEGATIVE (NEGATIVE); TRICYCLIC ANTIDEPRESSANT,URINE NEGATIVE (NEGATIVE)
[2021-07-02] MEDS: OLANZapine ODT 5 MG TABLET TL STA (15:39)
[2021-07-02 17:35] LABS: BILIRUBIN,URINE NEGATIVE (NEGATIVE); GLUCOSE, URINE (UA) >=1000 mg/dL (NEGATIVE); KETONES,URINE (UA) TRACE mg/dL (NEGATIVE); LEUKOCYTE ESTERASE, URINE NEGATIVE (NEGATIVE); NITRITE,URINE NEGATIVE (NEGATIVE); OCCULT BLOOD,URINE NEGATIVE (NEGATIVE); PROTEIN,URINE NEGATIVE (NEGATIVE); UROBILINOGEN,URINE 0.2 (NORMAL) E.U./dL (NORMAL)
[2021-07-02 17:36] LABS: CLARITY,URINE CLEAR (CLEAR)
--- NOTE | 2021-07-02 19:22 | ED Physician Documentation ---
ED Addendum - Addendum Addendum: 07/02/21 19:21 Patient was placed on an involuntary hold by ARTHUR Cavazos. Patient was accepted by Dr. Cao at [facility]. COBRA forms completed. Patient will be transported. This document was made in part using voice recognition software. While efforts are made to proofread this document, sound alike and grammatical errors may occur. Departure - Departure Disposition: 65 Psych Hosp/Unit DC/Xfer Clinical Impression: Psychosis Qualifiers: Psychosis type: unspecified psychosis type Qualified Code(s): F29 - Unspecified psychosis not due to a substance or known physiological condition Schizoaffective disorder Qualifiers: Schizoaffective disorder type: unspecified Qualified Code(s): F25.9 - Schizoaffective disorder, unspecified Condition: Stable
[2021-07-02 21:07] VITALS: BP 140/65
== END 2021-07-02 21:10 ==
LOC: EDUNIT# → ED 07:51
DX: F29 Unspecified psychosis not due to a substance or known physiological condition (principal); F25.9 Schizoaffective disorder, unspecified; E11.9 Type 2 diabetes mellitus without complications; Z79.84 Long term (current) use of oral hypoglycemic drugs; F17.200 Nicotine dependence, unspecified, uncomplicated
CPT/HCPCS: 36415; 80053; 80306; 80320; 81003; 83690; 83735; 84443; 85025; 87635; 93005; 99284; 99285; A9270; 81001; 87086